=== PATIENT | male | born 1990 | race Caucasian/White ===

== ENCOUNTER 2017-09-07 19:04 | Emergency (ER) | payer OTHER ==
[~2017-09-07] VITALS: Ht 167.6 cm; Wt 60.0 kg
[~2017-09-07 19:04] MED LIST: ACET-8386 PO; AMOX-842 PO
[2017-09-07 19:12] VITALS: BP 156/97
--- NOTE | 2017-09-07 19:20 | NUR ---
TO ER BED 10
--- NOTE | 2017-09-07 19:42 | NUR ---
PT C/O PRECORDIAL CHEST PAIN, RADIATING OVER ENTIRE CHEST, 3/10, PRESSURE, CONTINUOUS. PT STATES HE HAS BEEN COUGHING FOR 2 WEEKS. RR EVEN AND UNLABORED, BL BS CLEAR THROUGH OUT. PT IN BED, POSITIONED FOR COMFORT. MOTHER AT BEDSIDE.
[2017-09-07] MEDS ORDERED: IBUPROFEN 800 MG TAB PO ONE (20:00)
[2017-09-07 20:25] VITALS: BP 139/78
--- NOTE | 2017-09-07 20:27 | NUR ---
Patient discharged with v/s stable. Written and verbal after care instructions given and explained. Patient alert, oriented and verbalized understanding of instructions. Ambulatory with steady gait. All questions addressed prior to discharge. ID band removed. Patient advised to follow up with PMD. Rx of MOTRIN 800MG, PROMETHAZINE HCL DEXTROMETHORPHAN given. Patient educated on indication of medication including possible reaction and side effects. Opportunity to ask questions provided and answered.
== END 2017-09-07 20:25 | disposition home or self-care (01) ==
LOC: MED 19:04
DX: S29.011A Strain of muscle and tendon of front wall of thorax, initial encounter (principal); R03.0 Elevated blood-pressure reading, without diagnosis of hypertension; Z79.899 Other long term (current) drug therapy; X58.XXXA Exposure to other specified factors, initial encounter; Y93.89 Activity, other specified; Y92.89 Other specified places as the place of occurrence of the external cause; Y99.8 Other external cause status
CPT/HCPCS: 71045; 93005; 99284; Q0092